=== PATIENT | male | born 1955 | race Caucasian/White ===

== ENCOUNTER 2017-03-26 10:08 | Emergency (ER) | payer OTHER ==
[~2017-03-26] VITALS: Wt 77.1 kg
[2017-03-26] MEDS ORDERED: NAPROSYN500 MG PO (10:16)
== END 2017-03-26 11:07 | disposition home or self-care (01) ==
LOC: ED 10:08
DX: S93.401A Sprain of unspecified ligament of right ankle, initial encounter (principal); R03.0 Elevated blood-pressure reading, without diagnosis of hypertension; F17.200 Nicotine dependence, unspecified, uncomplicated; W01.0XXA Fall on same level from slipping, tripping and stumbling without subsequent striking against object, initial encounter; Y93.89 Activity, other specified; Y92.89 Other specified places as the place of occurrence of the external cause; Y99.8 Other external cause status

== ENCOUNTER → 2018-03-21 | Outpatient (CLI) | payer OTHER ==
[~2018-03-21] MED LIST: NAPROSYN500 MG PO
== END | disposition home or self-care (01) ==
LOC: CT 11:00
DX: R06.02 Shortness of breath (principal); K76.89 Other specified diseases of liver

== ENCOUNTER 2018-11-07 09:21 | Emergency (ER) | payer OTHER ==
[~2018-11-07] VITALS: Ht 180.3 cm; Wt 81.2 kg
--- NOTE | ~2018-11-07 | EKG ---
[place], [place] ELECTROCARDIOGRAM REPORT NAME: ALYSE SCHNEIDER UNIT #: [id number] ROOM: DOCTOR: EPIPHANY DRAFT REPORT BIRTHDATE: [birth year] [facility] Test Date: 2018-11-07 Test Time: 10:10:29 Pat Name: ALYSE SCHNEIDER Department: Room: Gender: Corporate Treasurer: : 1955 Requested By: EUN HERRERA DNP Order Number: [id number] Reading MD: Sky Chacon MD Measurements Intervals [place] Rate: 67 P: 75 DC: 155 QRS: 49 QRSD: 96 T: 15 QT: 404 QTc: 427 Interpretive Statements Sinus rhythm Nonspecific ST T changes Electronically Signed On 11-14-2018 4:11:42 PDT by Sky Chacon MD CM:[email or web address]:ELECTROCARDIOGRAM REPORT [id number] EUN HERRERA DNP EPIPHANY DRAFT REPORT EUN HERRERA DNP
[2018-11-07] MEDS ORDERED: XARELTO20 M1 PO (09:25)
[2018-11-07 09:58] LABS: BASO # 0.1 10*3/uL (0.0-0.1); BASO % 1.2 % (0.0-1.0); EOS # 0.6 10*3/uL (0.0-0.4); EOS % 6.3 % (1.0-4.0); HEMATOCRIT 45.1 % (42.0-52.0); HEMOGLOBIN 15.1 g/dl (14.0-18.0); LYMPH # 2.2 10*3/uL (1.3-4.4); LYMPH % 21.9 % (27.0-41.0); MEAN CORPUSCULAR HGB 30.1 pg (27.0-31.0); MEAN CORPUSCULAR HGB CONC 33.5 g/dl (33.0-37.0); MEAN PLATELET VOLUME 8.5 fl (9.6-12.3); MONO # 0.8 10*3/uL (0.1-1.0); MONO % 7.5 % (3.0-9.0); NEUT # 6.3 10*3/uL (2.3-7.9); NEUT % 62.5 % (47.0-73.0); PLATELET COUNT AUTOMATED 241 10*3/uL (130-400); RED BLOOD COUNT 5.01 10*6/uL (4.50-5.90); RED CELL DISTRI WIDTH 13.6 % (0-14.5); WHITE BLOOD COUNT 10.1 10*3/uL (4.8-10.8)
[2018-11-07 10:07] LABS: ACT PARTIAL THROMBO TIME 35.9 SECONDS (20.0-32.1); INTERNATIONAL NORM RATIO 1.1 (2.0-3.5)
[2018-11-07 10:16] LABS: ALBUMIN 3.7 gm/dl (3.1-4.5); ALKALINE PHOSPHATASE 86 U/L (45-117); BUN 15 mg/dl (7-24); CHLORIDE 108 mmol/L (98-107); CREATININE 1.06 mg/dL (0.70-1.30); POTASSIUM 3.7 mmol/L (3.5-5.1); SGOT/AST 11 IU/L (3-35); SGPT/ALT 20 U/L (12-78); SODIUM 142 mmol/L (136-145); TOTAL PROTEIN 7.2 gm/dL (6.4-8.2)
[2018-11-07 10:17] LABS: TROPONIN I < 0.015 ng/ml (<0.045)
== END 2018-11-07 10:55 | disposition home or self-care (01) ==
LOC: ED 09:21
PROVIDERS: Nurse Practitioner Family
DX: M71.22 Synovial cyst of popliteal space [Baker], left knee (principal); I82.432 Acute embolism and thrombosis of left popliteal vein; I82.442 Acute embolism and thrombosis of left tibial vein; J44.9 Chronic obstructive pulmonary disease, unspecified; F17.200 Nicotine dependence, unspecified, uncomplicated; Z79.899 Other long term (current) drug therapy

== ENCOUNTER → 2020-04-28 | Outpatient (CLI) | payer OTHER ==
[~2020-04-28] MED LIST changes: +XARELTO20 M1 PO
== END | disposition home or self-care (01) ==
LOC: CT 08:52
PROVIDERS: ATTEND Nurse Practitioner Family
DX: I25.10 Atherosclerotic heart disease of native coronary artery without angina pectoris (principal); Z86.11 Personal history of tuberculosis; Z87.09 Personal history of other diseases of the respiratory system

== ENCOUNTER → 2020-05-20 | Outpatient (CLI) | payer OTHER | END | disposition home or self-care (01) | LOC: CARD 14:44 | PROVIDERS: ATTEND Nurse Practitioner Family | DX: I35.1 Nonrheumatic aortic (valve) insufficiency (principal); I35.8 Other nonrheumatic aortic valve disorders ==

== ENCOUNTER → 2020-11-03 | Outpatient (CLI) | payer OTHER | END | disposition home or self-care (01) | LOC: US 07:16 | PROVIDERS: ATTEND Nurse Practitioner Family | DX: Z72.0 Tobacco use (principal) ==

== ENCOUNTER → 2021-11-02 | Outpatient (CLI) | payer OTHER ==
[~2021-11-02] MED LIST changes: +CALCIUM 600 +1 EA11 PO; +FOLIC ACID0.8 M1 PO; +LIPITOR20 MG PO; +ONE-A-DAY MEN'1 EAC4 PO; +PROVENTIL HFA6.7 GM INH; +VITAMIN D325 MCG PO
== END | disposition home or self-care (01) ==
LOC: CARD 03:24
PROVIDERS: ATTEND Nurse Practitioner Family
DX: I25.10 Atherosclerotic heart disease of native coronary artery without angina pectoris (principal)

== ENCOUNTER → 2021-11-23 | Outpatient (CLI) | payer OTHER | END | disposition home or self-care (01) | LOC: CT 08:00 | PROVIDERS: ATTEND Nurse Practitioner Family | DX: R91.1 Solitary pulmonary nodule (principal) ==

== ENCOUNTER 2024-12-25 18:18 | Emergency (ER) | payer OTHER ==
[~2024-12-25] VITALS: Ht 177.8 cm; Wt 89.4 kg
[2024-12-25] MEDS ORDERED: HEPARIN SODIUM 5,000 UNIT/ML VIAL IV ONE (18:30)
[2024-12-25] MEDS ORDERED: ASPIRIN, CHEWABLE 81 MG TAB PO ONE (18:30)
[2024-12-25] MEDS ORDERED: NITROGLYCERIN 0.4 MG BOT SL ONE (18:49)
[2024-12-25] MEDS ORDERED: HEPARIN SODIUM 250 ML IV ONE (18:49)
[2024-12-25] MEDS ORDERED: NITROGLYCERIN 1 IN PACKET T ONE (18:50)
[2024-12-25 19:02] LABS: BASO # 0.1 10*3/uL (0.0-0.1); BASO % 0.8 % (0.0-1.0); EOS # 0.4 10*3/uL (0.0-0.4); EOS % 2.8 % (1.0-4.0); MEAN CELL VOLUME 92.2 fl (80.0-94.0); MEAN CORPUSCULAR HGB 31.1 pg (27.0-31.0); MEAN PLATELET VOLUME 8.7 fl (9.6-12.3); MONO # 0.7 10*3/uL (0.1-1.0); MONO % 4.8 % (3.0-9.0); NEUT # 11.5 10*3/uL (2.3-7.9); NEUT % 77.6 % (47.0-73.0); NUCLEATED RED BLOOD CELL 0.0 % (0.0-0.0); NUCLEATED RED BLOOD CELL 0.0 10*3/uL (0.0-0.0); PLATELET COUNT AUTOMATED 248 10*3/uL (130-400); RED CELL DISTRI WIDTH 13.0 % (0-14.5)
[2024-12-25 19:24] LABS: BUN 12 mg/dl (9-23); SGPT/ALT 23 U/L (5-49)
[2024-12-25 19:35] LABS: ACT PARTIAL THROMBO TIME 122.4 SECONDS (20.0-32.1)
== END 2024-12-25 19:05 | disposition short-term general hospital (02) ==
LOC: ED 18:18
PROVIDERS: Emergency Medicine
DX: I21.9 Acute myocardial infarction, unspecified (principal); E78.00 Pure hypercholesterolemia, unspecified; Z79.899 Other long term (current) drug therapy; Z98.890 Other specified postprocedural states